=== PATIENT | female | born 1975 | race Two or more races ===

== ENCOUNTER 2021-05-06 09:09 | Outpatient (CLI) | payer OTHER | END 2021-05-06 09:10 | disposition home or self-care (01) | LOC: NUCLEAR 09:09 | PROVIDERS: ATTEND Psychiatry & Neurology Neurology | DX: M79.602 Pain in left arm (principal); M79.601 Pain in right arm; G54.0 Brachial plexus disorders ==

== ENCOUNTER → 2021-05-07 | Outpatient (CLI) | payer OTHER | END | disposition home or self-care (01) | LOC: NUCLEAR 05-05 09:00 | PROVIDERS: ATTEND Psychiatry & Neurology Neurology | DX: M79.602 Pain in left arm (principal); M79.601 Pain in right arm; G54.0 Brachial plexus disorders ==